=== PATIENT | female | born 1990 | race Asian ===

== ENCOUNTER 2019-05-05 20:57 | Emergency (ER) | payer OTHER ==
[2019-05-05 21:03] VITALS: BP 114/72
--- NOTE | 2019-05-05 22:01 | ED ---
Laceration/Wound HPI - HPI Summary HPI Summary: 29-year-old male presents with left ring finger laceration. She states she cut it on a knife tonight. The area continues to bleed. She denies any foreign body in the wound. Her tetanus up-to-date. Has full range motion finger. Denies any numbness or tingling. Has no medical conditions. - History of Current Complaint Stated Complaint: L RING FINGER LAC PER PT Time Seen by Provider: 05/05/19 21:17 Pain Intensity: 7 - Allergy/Home Medications Allergies/Adverse Reactions: Allergies Allergy/AdvReac Type Severity Reaction Status Date / Time No Known Allergies Allergy Verified 05/05/19 21:03 PMH/Surg Hx/FS Hx/Imm Hx Endocrine/Hematology History: Denies: Hx Anticoagulant Therapy Respiratory History: Denies: Hx Asthma - Immunization History Immunizations Up to Date: Yes Infectious Disease History: No Infectious Disease History: Denies: Traveled Outside the [place] in Last 30 Days - Family History Known Family History: Positive: Non-Contributory - Social History Alcohol Use: None Substance Use Type: Reports: None Smoking Status (MU): Never Smoked Tobacco Review of Systems Negative: Fever Negative: Chest Pain Negative: Shortness Of Breath Positive: Other - left ring finger laceration All Other Systems Reviewed And Are Negative: Yes Physical Exam Triage Information Reviewed: Yes Vital Signs On Initial Exam: Initial Vitals Temp Pulse Resp BP Pulse Ox 97.7 F 60 16 114/72 98 05/05/19 21:00 05/05/19 21:00 05/05/19 21:00 05/05/19 21:00 05/05/19 21:00 Vital Signs Reviewed: Yes Appearance: Positive: Well-Appearing Skin: Positive: Warm, Dry Head/Face: Positive: Normal Head/Face Inspection Eyes: Positive: Normal ENT: Positive: Pharynx normal Respiratory/Lung Sounds: Positive: Clear to Auscultation, Breath Sounds Present Cardiovascular: Positive: Normal, RRR Musculoskeletal: Positive: Strength/ROM Intact - left ring finger Neurological: Positive: Normal Psychiatric: Positive: Normal Procedures - Sedation Patient Received Moderate/Deep Sedation with Procedure: No - Laceration/Wound Repair 1 Location: Other - left ring finger Description: Linear Anesthesia: Digital, 1.0% Length, Depth and Shape: 2 1/2cm by 1/2cm to distal phalanx of left ring finger Irrigated w/ Saline (ccs): 500 Closure: Single Layer Suture Type: Prolene Number of Sutures: 4 Diagnostics - Vital Signs Vital Signs Temp Pulse Resp BP Pulse Ox 05/05/19 21:00 97.7 F 60 16 114/72 98 - Laboratory Lab Statement: Any lab studies that have been ordered have been reviewed, and results considered in the medical decision making process. Laceration Repair Course/Dx - Course Course Of Treatment: 29-year-old male presents with left ring finger laceration. She states she cut it on a knife tonight. The area continues to bleed. She denies any foreign body in the wound. Her tetanus up-to-date. Has full range motion finger. Denies any numbness or tingling. Has no medical conditions. On exam has 2 1/2cm by 1/2cm laceration to the distal phalanx of the left ring finger. Cleaned area and placed 4 sutures. told to keep area clean and dry. Patient understands and agrees with plan. - Differential Dx Differental Diagnoses: Abrasion, Avulsion, Laceration - Clinical Impression Provider Diagnoses: Laceration of left ring finger Discharge ED - Sign-Out/Discharge Documenting (check all that apply): Patient Departure - Discharge Plan Condition: Good Disposition: HOME Patient Education Materials: Care For Your Stitches (ED) Referrals: No Primary Care Phys,NOPCP [Primary Care Provider] - Additional Instructions: Take Tylenol or ibuprofen for pain every 6 hours as needed Keep area clean and dry for 24 hours apply neosporin or vaseline and keep covered Return to ED or primary in 8-10 days to have sutures removed Return to ED if develop signs of infection such as fever, spreading redness, or pus. - Billing Disposition and Condition Condition: GOOD Disposition: Home
== END 2019-05-05 22:00 | disposition home or self-care (01) ==
LOC: ED 20:57
DX: S61.215A Laceration without foreign body of left ring finger without damage to nail, initial encounter (principal); W26.0XXA Contact with knife, initial encounter; Y92.9 Unspecified place or not applicable
CPT/HCPCS: 12001; 99282